=== PATIENT | female | born 1955 | race Caucasian/White ===

== ENCOUNTER → 2021-08-22 11:05 | Outpatient (CLI) | payer OTHER, SELFPAY ==
[2021-08-22 14:22] LABS: COVID19 -Nasal RAPID Negative (Negative)
== END ==
PROVIDERS: Visit Provider Physician Assistant
DX: Z20.822 Contact with and (suspected) exposure to COVID-19 (principal); Z01.812 Encounter for preprocedural laboratory examination
CPT/HCPCS: 87635; C9803

== ENCOUNTER 2021-08-25 10:38 | Day surgery (SDC) | payer OTHER, SELFPAY ==
[2021-08-18 12:33] VITALS: BMI 41.1
[2021-08-25] VITALS (19 sets, daily range): BP systolic 122–171; BP diastolic 65–109; PULSE 71–85; RESP 11–18; TEMP 36.1–36.4; O2SAT 96–100; BMI 41.1
[2021-08-25] MEDS: LACTATED RINGERS 1,000 ML 42 ML IV ×2 (11:27→15:28)
--- NOTE | 2021-08-25 12:55 | PM.PREOP ---
Pre-operative Note COVID-19 COVID-19 status: Negative Result date/Date tested (Pos, Neg/Pending): 08/23/21 Interval Note History & Physical reviewed/Exam performed by Physician: Yes Changes to H&P: No
[2021-08-25] MEDS: CLINDAMYCIN 900 MG/50 ML PIGGYBACK 50 MG IV ×2 (13:35→21:55)
[2021-08-25] MEDS: BUPIVACAINE LIPOSOME 266 MG/20 ML VIAL INJ (14:00)
[2021-08-25] MEDS: BUPIVACAINE 0.25% (PF) VIAL 30 ML INJ (14:04)
[2021-08-25] MEDS: EPINEPHrine 1 MG/ML 0.15 MG SUBCUT (14:05)
--- NOTE | 2021-08-25 14:26 | SUR.OPER ---
Prone on spine table, head in foam head support, padded chest and pelvic supports, gel pad at knees, lower legs supported by pillows; nipples, genitalia and toes free of pressure, arms secured on foam padded arm boards at <90 degrees abduction. Tape over blanket at thigh secured to table. Gel pads placed between heels, between bilateral hip/thighs and table, and to table bar support on right side of table between patient.
--- NOTE | 2021-08-25 15:51 | PM.OP.1 ---
Operative Date/Time/Diagnoses Date of procedure: 08/25/21 Time of procedure: 13:00 Pre-op diagnosis: 1. L5-S1 spondylolisthesis 2. L5-S1 spinal stenosis with radiculopathy Post-op diagnosis: same Procedure & Clinicians Procedure: 1. L5-S1 Postero-lateral and posterior interbody fusion 2. L5-S1 interbody cage placement. 3. L5-S1 decompressive laminectomy with bilateral facetecomies 4. L5-S1 Posterior non-segmental instrumentation 5. [place] of bone marrow from iliac crest 6. Utilization of microsurgical technique and operating microscope Same procedure as scheduled: Yes Indications: Patient has been having chronic back pain and worsening lumbar radiculopathy. Patient failed multiple conservative management with worsening pain weakness and numbness in her lower extremity. Patient has been having difficulty performing activity of daily living. After discussing risks benefits of treatment options, patient elected proceed with surgery. Surgeon: Nedra Ryder Rotary Kiln Operator: Celsa Danielson Click Yes if Unassisted: No Anesthesia Type: General Operative Notes Closure Type: primary Specimen(s): none sent Prosthetic devices, grafts, tissues, transplants, or devices: Globus revolve screws, Rise cage Estimated Blood Loss (mL): 50 Blood products transfused: none Procedure in detail: Patient was seen in the preoperative area. Risks and benefits of the surgery was discussed with the patient. Informed consent was obtained from the patient and placed in the chart. Surgical site was marked. Patient was taken to the operative room. General anesthesia was administered. Prophylactic antibiotic was given to the patient less than 30 min before the incision was made. Patient was placed into a prone position on the Edvin table. Patient's back was then prepped and draped in the sterile fashion. Time-out was performed at this time. Using AP and lateral C-arm imaging the interval between L5-S1 was identified and marked on patient's back. A 2 inch incision 2 in from midline was made on the left side first. The fascia was incised in line with skin incision. Globus MARS retractors was placed inside the incision and docked onto the L5 lamina. Using microsurgical technique and operating microscope, a L5 laminectomy and L5-S1 facetectomy was performed using a Kerrison rongeur. Patient was found have severe neural foraminal stenosis and required a total facetectomy for decompression which rendered L5-S1 grossly unstable and required a fusion procedure at the same time. The disc space at L5-S1 was identified. And a total diskectomy was performed at L5-S1 level. The endplates were decorticated using a rasp and shaver. The total diskectomy and decortication was performed at L5-S1 level in order to to accomplish a L5-S1 fusion. The local bone from the laminectomy and facetectomy was saved for local bone grafting. After the total diskectomy and decortication was completed, Trifecta bone graft material was combined with local bone that was harvested earlier. At this time, a separate skin is incision was made over the iliac crest. A Jamshidi needle was inserted into the iliac crest through a separate skin incision. 5 cc of bone marrow aspiration was obtained through the separate skin incision using a Jamshidi needle from the iliac crest. The bone marrow aspiration was combined with local bone and the Trifecta bone grafting material. The bone grafting material was placed into the L5-S1 interbody space along with a expandable cage. The cage was expanded to its maximum height using the torque limiting screwdriver. At this time a mirror image incision was made on the left side. The fascia was incised in line with the skin incision. Globus MARS retractor was inserted and docked onto the L5-S1 posterolateral gutter. Using the power drill, posterior-lateral decortication was performed at L5-S1 level until bleeding cortical bone was identified. The remaining bone grafting material was placed into the L5-S1 posterior lateral gutter he order to accomplish posterolateral fusion at the L5-S1 level. Using the double C-arm technique, pedicle screws were placed into the L5-S1 pedicles bilaterally. This was done by placing the Jamshidi needle into the pedicles, then placing the guidewires over the Jamshidi needle, and finally placing the cannulated screws over the guidewires bilaterally. After the pedicle screws were placed, 2 titanium rods was locked into the heads of the pedicle screws using locking caps and torque limiting screwdriver. Thready reducers were used to reduce the patient's spondylolisthesis. Appropriate reduction was accomplished and maintained using the hardware placed. After all the hardware was placed, and confirmed with AP and lateral C-arm imaging, the wound was then irrigated with sterile normal saline and packed with Ray-Ana Rosa gauze for 3 min to accomplish hemostasis. After the gauze was removed the deep fascia was closed with #1 Vicryl suture. The subcutaneous layer was closed with 2-0 Vicryl. The skin was closed with skin bernadette. Patient tolerated the procedure well. There were no complications. Complications: none Post-operative Condition: stable Disposition: PACU Plan for aftercare: Admit to inpatient hospital
--- NOTE | 2021-08-25 15:56 | DI.RAD.S_ITS ---
PROCEDURE: XR LUMBAR SPINE 2-3V INDICATIONS: L5-S1 TLIF TECHNIQUE: 2 intraoperative fluoroscopic views of the lumbar spine were acquired. COMPARISON: None. FINDINGS: Intraoperative fluoroscopic images of lower lumbar spine shows posterior fusion at L5-S1 level with intervertebral spacer placement. IMPRESSION: Fluoro guidance was provided intraoperatively for posterior fusion at L5-S1 level. Dictated by: Mariano Rushing M.D. on 08/25/2021 at 16:09 Approved by: Mariano Rushing M.D. on 08/25/2021 at 16:10
[2021-08-25] MEDS: fentaNYL 100 MCG/2 ML INJ IV ×2 (16:09→16:22)
[2021-08-25] MEDS: HYDROMORPHONE 2 MG INJ IV ×2 (16:30→16:47)
[2021-08-25] MEDS: HYDROMORPHONE 0.5 MG INJ IV ×2 (17:47→20:23)
[2021-08-25] MEDS: SODIUM CHLORIDE 0.9% 1,000 ML 100 ML IV (17:50)
[2021-08-25] MEDS: ACETAMINOPHEN 325 MG TABLET 650 MG PO (18:01)
[2021-08-25] MEDS: hydrOXYzine pamoate 25 MG CAPSULE PO (18:02)
[2021-08-25] MEDS: SENNOSIDES 8.6 MG TABLET 17.2 MG PO (20:23)
[2021-08-25] MEDS: DOCUSATE 100 MG CAPSULE PO (20:23)
[2021-08-26] MEDS: hydrOXYzine pamoate 25 MG CAPSULE PO (00:01)
[2021-08-26] MEDS: OXYCODONE IR 5 MG TABLET 10 MG PO ×4 (00:01→13:30)
[2021-08-26 00:05] VITALS: BP 146/82; PULSE 90; RESP 18; TEMP 36.1; O2SAT 99
[2021-08-26] MEDS: HYDROMORPHONE 0.5 MG INJ IV (01:25)
[2021-08-26] MEDS: SODIUM CHLORIDE 0.9% 1,000 ML 100 ML IV (05:19)
[2021-08-26] MEDS: CLINDAMYCIN 900 MG/50 ML PIGGYBACK 50 MG IV (05:20)
[2021-08-26 06:02] VITALS: BP 131/71; PULSE 102; RESP 16; TEMP 36.9; O2SAT 98
--- NOTE | 2021-08-26 07:45 | P.DS_ITS ---
History of Present Illness History of Present Illness Date Patient Seen: 08/26/21 Time Patient Seen: 07:46 Chief complaint: Low back pain status post lumbar fusion Narrative: The patient is complaining of [id number]-id-[id number] low back pain this morning, which is different than prior to surgery. She denies any new numbness or tingling down her legs. She denies nausea or vomiting. No fevers, chills, night sweats. Overall she is feeling well. She has not worked with physical therapy yet, but if she does well, she would like to go home today. Discharge Providers Provider Discharge Date: 08/26/21 Primary care physician: Doctor Jeferson MD Consults: 08/25/21 17:25 Consult to Occupational Therapy Evaluate & Treat Comment: Physician Instructions: Evaluate and treat Consult to Physical Therapy Evaluate & Treat Comment: Physician Instructions: Evaluate and Treat Discharge provider: Celsa Danielson PA-C Summary Hospital Course Discharge Diagnosis: 1. L5-S1 spondylolisthesis 2. L5-S1 spinal stenosis with radiculopathy Hospital Course: Procedure: 1. L5-S1 Postero-lateral and posterior interbody fusion 2. L5-S1 interbody cage placement. 3. L5-S1 decompressive laminectomy with bilateral facetecomies 4. L5-S1 Posterior non-segmental instrumentation 5. [place] of bone marrow from iliac crest 6. Utilization of microsurgical technique and operating microscope Same procedure as scheduled: Yes Indications: Patient has been having chronic back pain and worsening lumbar radiculopathy. Patient failed multiple conservative management with worsening pain weakness and numbness in her lower extremity. Patient has been having difficulty performing activity of daily living. After discussing risks benefits of treatment options, patient elected proceed with surgery. Surgeon: Nedra Ryder Financial Reporting Consultant: Celsa Daneilson Click Yes if Unassisted: No Anesthesia Type: General Operative Notes Closure Type: primary Specimen(s): none sent Prosthetic devices, grafts, tissues, transplants, or devices: Globus revolve screws, Rise cage Estimated Blood Loss (mL): 50 Blood products transfused: none Status at Discharge Cognitive/behavioral status at discharge: oriented Functional status at discharge: uses cane/walker Overall status at discharge: patient is progressing back to baseline Exam Vital Signs (past 8 hours): - 08/26/21 00:05 08/26/21 06:02 Temperature 97.0 F L 98.4 F Pulse Rate 90 102 H Respiratory Rate 18 16 Blood Pressure 146/82 H 131/71 Pulse Oximetry 99 98 Oxygen Delivery Method Nasal Cannula Oxygen Flow Rate 2 Narrative Exam Narrative: Pleasant 66-year-old female, resting comfortably in bed, no acute distress. Incision demonstrates very small area of scant drainage, otherwise clean, dry, intact. No surrounding erythema or induration. Bilateral lower extremity motor functions are grossly intact. Bilateral sensation is grossly intact to light touch. Calves are soft, nontender to palpation. PFSH Medical History Cataract Diverticulitis Elevated blood pressure, situational Former smoker HLD (hyperlipidemia) Insomnia Surgical History History of 2 sections History of bunionectomy of left great toe History of partial hysterectomy Hx of appendectomy Hx of left breast biopsy Social History household members: spouse and children Smoking Status: Former smoker alcohol intake: current Discharge Assessment & Plan Assessment and Plan Assessment: Progressing well status post lumbar fusion Plan of Treatment: Mobilize with PT today. If she is cleared, she may DC home today. Her daughter and are available at home to help. Limit bending, lifting, twisting. Weightbearing as tolerated with front wheel walker. Continue with current pain regimen. Follow-up with Dr. Ryder in 10-14 days for postoperative visit Discharge Plan Discharge Plan Patient Disposition: Home Discharge orders & Medications Discharge Orders: Discharge (Order); Ordered 08/26/21 Ordered By: Celsa Danielson Prescriptions: New acetaminophen 500 mg capsule 500 mg PO Q4H MDD Max 6 tabs per day PRN (Reason: Pain, Mild (1-3)) Qty: 90 RF: 0 hydroxyzine pamoate 25 mg Capsule 25 mg PO Q4HR PRN (Reason: Nausea And Vomiting, muscle spasms) Qty: 20 RF: 0 oxycodone 5 mg Tablet See Rx Instructions .ROUTE .COMPLEX PRN (Reason: Pain, Severe (7-10)) Qty: 42 RF: 0 docusate sodium 100 mg Capsule 100 mg PO BID PRN (Reason: Constipation from narcotic pain meds) Qty: 30 RF: 0 Continued simvastatin 20 mg Tablet 20 mg PO DAILY RF: 0 ibuprofen 200 mg Tablet 400 mg PO DAILY PRN (Reason: Pain) RF: 0 famotidine [Acid Controller] 20 mg Tablet 20 mg PO DAILY PRN (Reason: Reflux) RF: 0 Discontinued acetaminophen 500 mg Tablet 1,000 mg PO Q6H PRN (Reason: Pain) RF: 0 Follow up/Referrals: Nedra Ryder MD [Physician] - (10-14 days for a postoperative visit) Doctor Govea MD [Primary Care Provider] - Diet/Activity/Treatments Diet: Diet as Tolerated and Regular Activity: Limit bending, lifting, twisting -weight bearing as tolerated with front wheel walker -continue with home exercises as demonstrated by Physical therapy Cold/Heat Therapy: -use ice as needed for pain Other treatments: -use Tylenol 500 mg 1 tab every 4 hours for pain -Use 1-2 tablets of Oxy: 5 mg as needed for moderate to severe pain. It used to go lacks for associated constipation -Use Vistaril(hydroxyzine) as needed for agitation, muscle spasms, nausea/vomiting Skin/Wound/Dressing Care Skin care: -okay to shower after 48 hours Report to your healthcare provider any signs of infection, such as:: chills, fever, night sweats, unusual drainage and unusual redness Dressing: -call the office if dressing becomes wet, soiled, saturated Visit Report/Discharge Packet Instructions: DI for Transforaminal Lumbar Interbody Fusion Stand Alone Forms: Surgery Discharge Discharge Data Primary Care Provider: Doctor Jeferson Attending Provider: Nedra Ryder Quality VTE Deep Vein Thrombosis/Pulmonary Embolism Present on Admission: No
[2021-08-26] MEDS: ACETAMINOPHEN 325 MG TABLET 650 MG PO (08:48)
[2021-08-26] MEDS: DOCUSATE 100 MG CAPSULE PO (08:49)
[2021-08-26] MEDS: ATORVASTATIN 20 MG TABLET 10 MG PO (08:49)
--- NOTE | 2021-08-26 09:25 | PT.IIE ---
Current Diagnoses Spondylolisthesis, lumbosacral region (08/25/21) Spinal stenosis, lumbar region without neurogenic claudication (08/25/21) Surgery Performed Operation Date: 08/25/21 12:15 Actual Procedures p L5-S1 TLIF - Nedra Ryder MD Medical History (Last Reviewed 08/26/21 @ 07:47 by Celsa Danielson PA-C) Cataract Diverticulitis Elevated blood pressure, situational Former smoker HLD (hyperlipidemia) Insomnia Physical Therapy Inpatient Evaluation/Re-Eval M1 PT/OT-IP Prior Functional Status Start: 08/26/21 08:38 Freq: NEEDED Status: Active Protocol: Document 08/26/21 10:32 [facility] (Rec: 08/26/21 10:47 [facility] [id number]) Medical Review Prior Functional Status Medical History Reviewed Yes Communication WNL. Pt is an effective verbal communicator. Mobility and Gait Independent without assistive device for up to 1/2 mile. Pt states she relies on a shopping cart during grocery trips. Her sitting tolerance has been limited and she has been unable to drive longer than 15 minutes at a time. Pt wears orthotics in her shoes but does not depend on them. Pt is vague about falls history but admits to falling approximately every three months. Activities of Daily Living and IADL's Independent with ADL's. 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 Social History Household Members spouse,children Living Arrangements House Number of Floors (Floors) Two Floors Number of Stairs To Enter/Railing? 2 CONNIE with a post on the left side and no rail. 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 Her spouse is able to assist as needed at home. M2 PT-IP Current Condition Start: 08/26/21 08:38 Freq: NEEDED Status: Active Protocol: Document 08/26/21 09:25 AW (Rec: 08/26/21 09:42 AW [id number]) Physical Therapy Current Condition Current Condition Evaluation Date 08/26/21 Treatment Diagnosis s/p L5-S1 TLIF; impaired mobility and gait Onset Date 08/25/21 Precautions Lumbar Precautions Log Roll,No Twisting,Limit Bending,Lifting Restriction of 10 lbs,Gait Belt above Incisional Area Other Precautions falls Weight Bearing Status Weight Bearing Status Weight Bear as Tolerated M3 PT-IP Subjective Start: 08/26/21 08:38 Freq: NEEDED Status: Active Protocol: Document 08/26/21 09:25 AW (Rec: 08/26/21 09:42 AW [id number]) Subjective Physical Therapy Visit Type Type Initial Evaluation Visit Start Time 08:45 Visit Stop Time 09:25 Total Visit Minutes 40 Notes Co-tx with PT Krishna who is orienting on acute care. Number of UI UX DEVELOPER Visits 0 Physical Therapy Visit Comments Patient Comments I'd really like to go home today. Patient Goals Return home with family support Therapy Pain Assessment Pain When Pain Assessed During Mobility Pain Present Pain Present Pain Reported Location Lower Back Intensity 2 Scale Used 1/10 at rest; 2/10 during mobility Pain Management Techniques Distraction,Re-positioning, Timing of Activity with Medications M4 PT-IP Mobility and Gait Start: 08/26/21 08:38 Freq: NEEDED Status: Active Protocol: Document 08/26/21 09:25 AW (Rec: 08/26/21 11:32 AW [id number]) PT-Bed Mobility Assessment Rolling Type of Rolling Log Rolling,Roll to Left Level of Assist Contact Guard Assistance,1 Person Assistance Supine to Sit Supine to Sit Contact Guard Assistance,1 Person Assistance Scooting Scooting to Edge of Bed Standby Assistance PT-Transfer Assessment Sit to and From Stand Sit to and from Stand Contact Guard Assistance,1 Person Assistance,Use of Upper Extremities Equipment Transfer Assistive Device Gait Belt,Front Wheeled Walker ,4 Wheeled Walker Orthotic/Prosthetic Devices or Brace: No Transfers Transfer Destination Chair,Toilet Transfer Technique ambulated with fww/4ww Transfer Ability Level of Assist Standby Assistance,Contact Guard Assistance Comments Mobility Comments Pt was lying in bed as PT arrived. BP 129/68 HR 86. PT educated on post op precautions and log roll for bed mobility. She log rolled to her left side and needed CGA to complete SL to sit. She stood from the bed CGA and used FWW to ambulate around the room before transferring to bedside chair CGA. She stood again SBA and agreed to ambulate in the halls. She walked 150 feet with FWW SBA. She completed stair training and returned to the room, transferring to the chair SBA. She stood SBA and walked to the toilet, transferring without use of grab bars CGA. She used hands on her thighs to stabilize ascending and descending. She then used 4WW to ambulate around the room before transferring back to the chair. Pt was left with call light and tray table in reach. Gait Assessment Gait Gait Assistance Required: Standby Assistance,Contact Guard Assist Distance (Feet) 150 Able to Maintain Weight Bearing Status Yes During Gait Assistive Devices Assistive Device Gait Belt,Front Wheeled Walker ,4 Wheeled Walker Orthotic/Prosthetic Devices or Brace: No Gait Deviations General Gait Pattern Antalgic,Decreased Feet Clearance,Wide Based Gait Factors Limiting Gait Function Factors Limiting Gait Function Decreased Activity Tolerance, Decreased Sensation,Decreased Strength,Pain Comments Gait Comments Pt ambulates with externally rotated hips and wide AR. She was safe with both FWW and 4WW but did require education on using brakes with 4WW for safety. Stair Climbing Assessment Evaluation Level of Assist On Stairs Minimal Assistance,1 Person Assistance Devices Stair Climbing Assistive Devices Left Railing Technique/Endurance Stair Climbing Direction Ascend and Descend Stair Climbing Technique Step to Step Number of Steps Climbed 3 Query Text: Stair Climbing Set # Repetitions (reps) 1 Comments Stair Climbing Comments Pt states there is a pole on the left side of her stairs which she can contact as needed. She proceeded to climb stairs leading with RLE, touching left handrail, and with GRANULATOR TENDER from PT on the right side. She descended in similar fashion, leading with RLE again. PT-Balance Assessment Sitting Balance and Reactions Static Sitting Balance Ability Normal Dynamic Sitting Balance Ability Good Standing Balance and Reactions Static Standing Balance Ability Good Dynamic Standing Balance Ability Good Device Used FWW, 4WW M5 PT-IP Objective Assessments Start: 08/26/21 08:38 Freq: NEEDED Status: Active Protocol: Document 08/26/21 09:25 AW (Rec: 08/26/21 09:45 AW [id number]) Orientation Orientation/Cognition Level of Alertness Alert Orientation Name,Day of Week,Place, Situation Language Function Ability No Deficits Noted Safety Awareness Understands Safety Issues Memory Description No Deficits Noted Comments Pt understands precautions but needs occasional reminders to apply them functionally. Gross Range of Motion Lower Extremity ROM Assessment Bilaterally Impaired Impairments hip ROM limited by habitus Strength Lower Extremity Strength Assessment Bilaterally Impaired Hip 4/5 Knee 4+5 Ankle 4/5 Sensation Assessment Sensation Gross Sensation Right LE Impaired,Left LE Impaired Light Touch Impaired Proprioception (Position) Impaired Sensation Description Numbness Muscle Tone Muscle Tone WNL Yes M6 PT-IP Treatment Start: 08/26/21 08:38 Freq: NEEDED Status: Active Protocol: Document 08/26/21 09:25 AW (Rec: 08/26/21 09:43 AW [id number]) Physical Therapy Treatment Education Education Provided Precautions,Weight Bearing Status,Post-Op Packet,Safety Other Treatments Other Treatment Performed Educated pt on PT plan of care , post-op precautions for functional mobility, safe use of FWW and 4WW. M7 PT-IP Assessment and Plan Start: 08/26/21 08:38 Freq: NEEDED Status: Active Protocol: Document 08/26/21 09:25 AW (Rec: 08/26/21 10:36 AW [id number]) PT Summary Assessment and Plan Potential Rehabilitation Potential Good Status of Condition at Evaluation Evolving Summary Impairments Pain,ROM,Strength,Sensation, Bed Mobility,Transfers,Gait Assessment Summary Tammie is a 66 yo woman seen for PT evaluation on POD1 following L5-S1 TLIF. She does not use an assistive device at baseline but admits to falls ~3-4/year. On evaluation , pt was able to recall 3/3 precautions but required cues to maintain them functionally. She required SBA to CGA with all mobility. She has her spouse and daughter to assist her at home. Once medically stable, she will be safe to discharge home with assist. PT recommends raised toilet seat with handles and tub transfer bench to improve safety at home. Goals Bed Mobility Goal Independent Transfer Goal Independent,Four Wheeled Walker Gait Goal Independent,Four Wheel Walker Gait Distance 150 Other Goals - up/down 2 steps with left side support (ascending) via GRANULATOR TENDER Days to Meet Goals 2 Frequency of Treatment Frequency Of Treatment Twice a Day Treatment Plan Physical Therapy Treatment Plan Bed Mobility Training,Transfer Training,Gait Training, Therapeutic Exercise,Post Op Education,Discharge Planning, Hot or Cold Pack Other Recommendations and Next Treatment review precautions; transfers Focus and progress ambulation with 4WW Precautions Lumbar Precautions Log Roll,No Twisting,Limit Bending,Lifting Restriction of 10 lbs,Gait Belt above Incisional Area Other Precautions falls Recommendations To Nursing Amount of Assist Needed Standby Assistance,1 Person Assist Discharge Recommendations PT Discharge Recommendations Home with Assistance Other Discharge Recommendations RTS with handles, tub transfer bench Transportation Needs at Discharge Private Vehicle
--- NOTE | 2021-08-26 10:28 | OT.IP.EVAL ---
Current Diagnoses Spondylolisthesis, lumbosacral region (08/25/21) Spinal stenosis, lumbar region without neurogenic claudication (08/25/21) Surgery Performed Operation Date: 08/25/21 12:15 Actual Procedures p L5-S1 TLIF - Nedar Ryder MD Past Medical History (Last Reviewed 08/26/21 @ 07:47 by Celsa Danielson PA-C) Cataract Diverticulitis Elevated blood pressure, situational Former smoker History of 2 sections History of bunionectomy of left great toe History of partial hysterectomy HLD (hyperlipidemia) Hx of appendectomy Hx of left breast biopsy Insomnia Surgical History (Last Reviewed 08/26/21 @ 07:47 by Celsa Danielson PA-C) History of 2 sections History of bunionectomy of left great toe History of partial hysterectomy Hx of appendectomy Hx of left breast biopsy Occupational Therapy Inpatient Evaluation/Re-Eval M1 PT/OT-IP Prior Functional Status Start: 08/26/21 08:38 Freq: NEEDED Status: Active Protocol: Document 08/26/21 10:32 [facility] (Rec: 08/26/21 10:47 [facility] [id number]) Medical Review Prior Functional Status Medical History Reviewed Yes Communication WNL. Pt is an effective verbal communicator. Mobility and Gait Independent without assistive device for up to 1/2 mile. Pt states she relies on a shopping cart during grocery trips. Her sitting tolerance has been limited and she has been unable to drive longer than 15 minutes at a time. Pt wears orthotics in her shoes but does not depend on them. Pt is vague about falls history but admits to falling approximately every three months. Activities of Daily Living and IADL's Independent with ADL's. 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 Social History Household Members spouse,children Living Arrangements House Number of Floors (Floors) Two Floors Number of Stairs To Enter/Railing? 2 CONNEI with a post on the left side and no rail. 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 Her spouse is able to assist as needed at home. M2 OT-IP Current Condition Start: 08/26/21 10:31 Freq: Status: Active Protocol: Document 08/26/21 10:32 [facility] (Rec: 08/26/21 10:47 [facility] [id number]) Occupational Therapy Current Condition Current Condition Evaluation Date 08/26/21 Treatment Diagnosis s/p L5-S1 TLIF Diagnosis Onset Date 08/25/21 Post Operative Precautions Lumbar Precautions Log Roll,No Twisting,Limit Bending,Lifting Restriction of 10 lbs,Gait Belt above Incisional Area M3 OT- IP Subjective and Pain Start: 08/26/21 10:31 Freq: Status: Active Protocol: Document 08/26/21 10:32 [facility] (Rec: 08/26/21 10:47 [facility] [id number]) OT- Subjective Occupational Therapy Visit Type Type Initial Evaluation Visit Start Time 09:40 Visit Stop Time 10:28 Total Visit Minutes 45 Occupational Therapy Visit Comments Patient Comments Pt agreed to work with OT. Patient/Caregiver Goals TO go home. OT Pain Assessment Pain When Pain Assessed At Rest Pain Present Pain Present Denied Pain M4 OT- IP ADL's Start: 08/26/21 10:31 Freq: Status: Active Protocol: Document 08/26/21 10:32 [facility] (Rec: 08/26/21 10:47 [facility] [id number]) OT [id number] Comments OT Self-Feeding Comments No issues noted. OT ADL-Grooming General Evaluation Grooming Ability Independent OT ADL-Oral Care General Eval Oral Care Ability Independent Comments Oral Care Comments Educated best to spit into a cup to best follow her back precautions. Pt wanting to lean on the counter for support but able to maintain keeping her back straight while doing oral care needs. 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 Pt able to demonstrate good safety. Pt states at home will not be wearing socks. OT ADL-Toileting Comments OT Toileting Comments Able to practice wiping to best follow her back precautions and it was determined best to stand to wipe at this time. Also suggested pt to get a BSC as she has to get up often to use the toilet at night. OT ADL-Bathing Comments OT Bathing Comments Pt wanting to shower at home. Able to practice to see if pt able to step over the tub in order to get in. Pt able to hold to the wall and with OT CGA able to step over. Pointed out that pt should not bath in the tub at this time. In addition best to cover the dressing during showering needs. M5 OT- IP IADL's Start: 08/26/21 10:31 Freq: Status: Active Protocol: Document 08/26/21 10:32 [facility] (Rec: 08/26/21 10:47 [facility] [id number]) OT-Instrumental Activities of Daily Living Home Safety Awareness Awareness of Need for Assistance at Home Good Awareness Home Safety Comments Best at this time to have 24/7 available assist at pt is very groggy from pain medications. Medication Management Medication Management Comments Best at this time to have 24/7 available assist at pt is very groggy from pain medications. Money Management Money Management Comments Best at this time to have 24/7 available assist at pt is very groggy from pain medications. Meal Preparation Meal Preparation Comments Best at this time to have 24/7 available assist at pt is very groggy from pain medications. Fruit Raiser Fruit Raiser Comments Best at this time to have 24/7 available assist at pt is very groggy from pain medications. M6 OT- IP Functional Cognition Start: 08/26/21 10:31 Freq: Status: Active Protocol: Document 08/26/21 10:32 [facility] (Rec: 08/26/21 10:47 [facility] [id number]) Cognitive Factors Limiting Selfcare Function Cognitive Ability Level of Alertness Alert Patient Orientation Name,Place,Situation Attention Span Ability Capable of Focused Attention, Capable of Sustained Attention Ability to Follow Commands Able to Follow One Step Commands Safety Awareness Decreased Recall of Precautions,Decreased Ability to Apply Precautions, Underestimates Need for Assistance Cognitive Comments Cognitive Assessment Comments Pt is groggy from medications and needing cues to follow for safety of back precautions. OT- Vision and Hearing OT- Hearing Assessment OT- Hearing Assessment Hearing Impaired OT- Vision Assessment Visual Acuity Glasses For Reading M7 OT- IP Mobility and Balance Start: 08/26/21 10:31 Freq: Status: Active Protocol: Document 08/26/21 10:32 [facility] (Rec: 08/26/21 10:47 [facility] [id number]) OT- Bed Mobility Assessment Sit to Supine Sit to Supine Assist Minimal Assistance OT-Transfer Assessment Sit to and From Stand Sit to and from Stand Standby Assistance Transfers Transfer Ability Standby Assistance,Contact Guard Assistance Technique Transfer Destination Bed,Chair,Shower Stall,Toilet Transfer Technique Stand Step Pivot Devices Transfer Assistive Devices None,Front Wheeled Walker Comments Mobility Comments SBA with FWW and close SBA without , but suggested best to use her 4WW at home to help remind her of her back precaution. OT- Gait Assessment Comments Gait Ability Comments SBA with FWW OT- Balance Assessment Sitting Balance and Reactions Static Sitting Balance Ability Normal Dynamic Sitting Balance Ability Normal Standing Balance and Reactions Static Standing Balance Ability Good M8 OT- IP Objective Assessments Start: 08/26/21 10:31 Freq: Status: Active Protocol: Document 08/26/21 10:32 [facility] (Rec: 08/26/21 10:47 [facility] [id number]) OT-Muscle Tone Assessment Muscle Tone WNL Yes M9 OT- IP Assessment and Plan Start: 08/26/21 10:31 Freq: Status: Active Protocol: Document 08/26/21 10:32 [facility] (Rec: 08/26/21 10:47 [facility] [id number]) OT Summary Assessment and Plan Potential Rehabilitation Potential Excellent Analytic Complexity at Evaluation Low Summary OT Impairments Balance,Functional Mobility, Dressing,Bathing Progress Towards Goals Progressing Toward Goals Assessment Summary Pt low complexity and main barriers are groggy from medications, pain, steps, needing vc for safety and needing JENNY to help get her legs into the bed at this time . Pt has a supportive family to assist her at home. Pt looking to go home today. Long handle shoe horn issued to pt. Goals Grooming Goal Independent Dressing Goal Independent Toileting Goal Independent Bathing Goal Independent Toilet Transfer Goal Independent Shower Transfer Goal Independent Patient/Caregiver Education Goal Demonstrate Post-Op Precautions,Caregiver Independent Assisting Patient Days to Meet Goals 3 Frequency of Treatment Frequency Of Treatment Once a Day Treatment Plan OT Treatment Plan ADL Training,Functional Mobility,Patient/Family Education,Discharge Planning Other Treatment Recommendations and Next shower if still here Treatment Focus Discharge Recommendations OT Discharge Recommendations Home with 24/ Assist Available Home Equipment Needs BSC, hand held shower spray Transportation Needs at Discharge Private Vehicle
--- NOTE | 2021-08-26 12:14 | CM.DANOTE ---
DCP: Case received, EMR reviewed and met with patient. Introduced self and role. Was able to obtain information regarding patient's baseline activity status prior to hospitalization, as well as her current living situation. DCP assessment completed with information currently available. Patient is a 66 year old female who admitted yesterday morning to the care of the orthopedic team. PCP: Dr. Perez. Payer: confirmed: [employer] Medicare [employer]age. Patient came to the hospital via private vehicle for a surgical procedure. Patient had a L5-S1 postero-lateral & posterior interbody fusion. Patient has history of spinal stenosis. Met with patient in her room. She is alert and oriented, she was sitting up in her chair. She resides near [place] with her spouse. Patient also confirmed that daughter, Cassidy, resides with her and will help out as well. Patient is independent at her baseline. She will be working with P.T. P: Patient is to be discharging home today. Lia Gray RN/Clerical Support Discharge Planning/Care Management CM Discharge Assessment Start: 08/26/21 12:11 Freq: Status: Active Protocol: Document 08/26/21 12:13 (Rec: 08/26/21 12:14 [id number]) Discharge Planning Assessment Assigned Manager Printing Lia Gray RN/Clerical Support Advance Directives? No Prior Living Arrangements House Household Members spouse,children Type of transporation used prior to Drives own vehicle admit Independent with ADL's Yes Is patient alert and oriented? Yes Caregiver for Another No Barriers to Discharge No Discharge Plan Home Transportation Arrangement Family Referrals Initiated None needed Whiteboard Updated in Patient Room with Yes name and ext. # of Manager Printing Review Status In Process Next Review Type Continued Stay Review Pre-Anesthesia Assessment Start: 08/18/21 12:33 Freq: Status: Active Protocol: Document 08/18/21 12:33 [facility] (Rec: 08/18/21 13:33 [facility] [id number]) Pre-Anesthesia Assessment Patient Information Reviewed Via Phone Assessment Assessment Completed With Patient H&P Completed Within 30 Days Yes Diagnostic Results BMP/CMP,CBC,EKG Comment Outside labs/EKG scanned, COVID screen @ 08/22/21 Primary Care Provider Haris Perez Seen Specialist in Last 12 Months Yes Specialist Seen Orthopedist Primary Language Spanish Obstetrics Tech Required No Height 5 ft 4 in Weight 240 lb Body Mass Index (BMI) 41.1 Hearing Ability Normal Visual Assist Glasses,Magnifying Glass Dentition Type Teeth, Natural Present Barriers to Learning None Hx Anesthesia Reactions No Hx Family Anesthesia Reaction No Hx Malignant Hyperthermia No Hx Blood Transfusions No Anesthesia Review Requested No alcohol intake current alcohol intake frequency holidays/special occasions only Smoking Status Former smoker Tobacco type cigarettes Smoking packs per day 1 how long ago did patient quit smoking Quit July 09 Substance Use Type does not use Pain Present Pain Reported Musculoskeletal Symptoms Abnormal Gait,Back Pain, Difficulty Walking,Muscle Weakness,Radiating Pain into Limb,Tingling History of Falling (Recent or History of No ) Patient is completely paralyzed or No completely immobile Mental Status Oriented to own ability Is patient on oxygen? No Does patient have CHAUDHRY/SOB No Hx Sleep Apnea No Currently Taking a Beta Rona No Hx Chest Pain No Hx SOB No Hx Syncope or Dizziness No Anti-Coagulant Therapy No Has a Corrections Sergeant No Cardiac Testing No Hx Pacemaker/ICD No Pacemaker Rep Required? No Cardiac Clearance Received Not Applicable Diet Type At Home Regular dysphagia No Bladder Pattern Urgency Urinary Catheter Present No Hx Urinary Self Catheterization No Diabetes No HgbA1C 5.6 Date 07/25/21 Patient No Lactating No Hx Drug Resistant Organism Yes: MRSA -nares 2015 Presence of External or Internal Medical Yes: Left great toe Devices Have you had any close contact with No someone diagnosed with COVID-19? Received a COVID vaccine? Pt refuses to answer, It's my business Marital Status Lives With spouse,children Prior Living Arrangements House Number of Floors (Floors) Two Floors Support System Child/Children,Spouse Does the Patient Have Assistance After Yes Surgery Patient Discharge Plan Description Return Home Comment Pt advised one night length of stay per surgeon Feels Safe in Current Environment Yes Been Physically Hurt or Threatened By a No Person in Current Environment Do you have thoughts of harming yourself None or others? Are you currently considering suicide? No Do you have a plan to hurt yourself or No Plan others? Do You Have Any Spiritual Beliefs That No May Affect Your HC Choices? Do You Have Any Cultural Practices That No May Affect Your HC Choices? Comment Daniel Who Can We Speak to About Patient's Care Family, friends Identifying Code for Release of Patient Declines to issue Information Health Care Proxy/Next of Kin Chip (daughter) Health Care Proxy Emergency Contact Name Swapnil () Emergency Contact Advance Directives? No Power of Balance Staff Inspector No PAC Instructions Durable medical equipment, Medications to take/avoid, Nasal antibiotic,No ETOH/ petroleum product on skin DOS, NPO,Pre-surgical wash,Sturdy shoes/comfortable clothes,Do not bring valuables and remove jewelry
--- NOTE | 2021-08-26 12:41 | PT.IPTN ---
Current Diagnoses Spondylolisthesis, lumbosacral region (08/25/21) Spinal stenosis, lumbar region without neurogenic claudication (08/25/21) Surgery Performed Operation Date: 08/25/21 12:15 Actual Procedures p L5-S1 TLIF - Nedra Ryder MD Physical Therapy Treatment Note M2 PT-IP Current Condition Start: 08/26/21 08:38 Freq: NEEDED Status: Active Protocol: Document 08/26/21 09:25 AW (Rec: 08/26/21 09:42 AW [id number]) Physical Therapy Current Condition Current Condition Evaluation Date 08/26/21 Treatment Diagnosis s/p L5-S1 TLIF; impaired mobility and gait Onset Date 08/25/21 Precautions Lumbar Precautions Log Roll,No Twisting,Limit Bending,Lifting Restriction of 10 lbs,Gait Belt above Incisional Area Other Precautions falls Weight Bearing Status Weight Bearing Status Weight Bear as Tolerated M3 PT-IP Subjective Start: 08/26/21 08:38 Freq: NEEDED Status: Active Protocol: Document 08/26/21 12:41 AW (Rec: 08/26/21 12:56 AW [id number]) Subjective Physical Therapy Visit Type Type Treatment Note Visit Start Time 12:25 Visit Stop Time 12:41 Total Visit Minutes 16 Number of EXPLOSIVE OPERATOR Visits 0 Physical Therapy Visit Comments Patient Comments Pt is willing to participate with PT Therapy Pain Assessment Pain When Pain Assessed At Rest Pain Present Pain Present Denied Pain Location Lower Back Intensity 2 Scale Used Numeric (0 - 10) Pain Management Techniques Apply Cold,Distraction,Re- positioning M4 PT-IP Mobility and Gait Start: 08/26/21 08:38 Freq: NEEDED Status: Active Protocol: Document 08/26/21 12:41 AW (Rec: 08/26/21 12:56 AW [id number]) PT-Bed Mobility Assessment Rolling Type of Rolling Log Rolling,Roll to Left Level of Assist Contact Guard Assistance,1 Person Assistance Sit to Supine Sit to Supine Contact Guard Assistance,1 Person Assistance PT-Transfer Assessment Sit to and From Stand Sit to and from Stand Standby Assistance,1 Person Assistance,Use of Upper Extremities Equipment Transfer Assistive Device Gait Belt,4 Wheeled Walker Orthotic/Prosthetic Devices or Brace: No Transfers Transfer Destination Bed Transfer Technique ambulated wth 4ww Transfer Ability Level of Assist Standby Assistance Comments Mobility Comments Pt was sitting up in chair finishing with lunch as PT arrived. She stood SBA after properly checking brakes on 4WW. She ambulated 500 feet with 4WW SBA before returning to the room and completing reverse log roll with cues and CGA. Pt was left in bed with alarm on for safety, call light and phone within reach. Gait Assessment Gait Gait Assistance Required: Standby Assistance Distance (Feet) 500 Able to Maintain Weight Bearing Status Yes During Gait Assistive Devices Assistive Device Gait Belt,4 Wheeled Walker Orthotic/Prosthetic Devices or Brace: No Gait Deviations General Gait Pattern Antalgic,Decreased Feet Clearance,Wide Based Gait Factors Limiting Gait Function Factors Limiting Gait Function Decreased Activity Tolerance, Decreased Sensation,Decreased Strength,Pain Comments Gait Comments Pt required occasional cues to avoid twisting and abandoning 4WW during gait. PT-Balance Assessment Sitting Balance and Reactions Static Sitting Balance Ability Normal Dynamic Sitting Balance Ability Normal Standing Balance and Reactions Static Standing Balance Ability Good Dynamic Standing Balance Ability Good Device Used 4WW M5 PT-IP Objective Assessments Start: 08/26/21 08:38 Freq: NEEDED Status: Active Protocol: Document 08/26/21 09:25 AW (Rec: 08/26/21 09:45 AW [id number]) Orientation Orientation/Cognition Level of Alertness Alert Orientation Name,Day of Week,Place, Situation Language Function Ability No Deficits Noted Safety Awareness Understands Safety Issues Memory Description No Deficits Noted Comments Pt understands precautions but needs occasional reminders to apply them functionally. Gross Range of Motion Lower Extremity ROM Assessment Bilaterally Impaired Impairments hip ROM limited by habitus Strength Lower Extremity Strength Assessment Bilaterally Impaired Hip 4/5 Knee 4+5 Ankle 4/5 Sensation Assessment Sensation Gross Sensation Right LE Impaired,Left LE Impaired Light Touch Impaired Proprioception (Position) Impaired Sensation Description Numbness Muscle Tone Muscle Tone WNL Yes M6 PT-IP Treatment Start: 08/26/21 08:38 Freq: NEEDED Status: Active Protocol: Document 08/26/21 12:41 AW (Rec: 08/26/21 12:56 AW [id number]) Physical Therapy Treatment Education Education Provided Precautions,Weight Bearing Status,Safety M7 PT-IP Assessment and Plan Start: 08/26/21 08:38 Freq: NEEDED Status: Active Protocol: Document 08/26/21 12:41 AW (Rec: 08/26/21 12:56 AW [id number]) PT Summary Assessment and Plan Summary Impairments Pain,ROM,Strength,Sensation, Bed Mobility,Transfers,Gait Progress Towards Goals Progressing Toward Goals,Safe For Discharge Assessment Summary Pt progressed her gait distance with occasional cues needed to avoid twisting. She has her spouse to assist at home and is safe for discharge once medically stable. Goals Bed Mobility Goal Independent Transfer Goal Independent,Four Wheeled Walker Gait Goal Independent,Four Wheel Walker Gait Distance 150 Other Goals - up/down 2 steps with left side support (ascending) via PROTOTYPE FABRICATOR Days to Meet Goals 2 Frequency of Treatment Frequency Of Treatment Twice a Day Treatment Plan Physical Therapy Treatment Plan Bed Mobility Training,Transfer Training,Gait Training, Therapeutic Exercise,Post Op Education,Discharge Planning, Hot or Cold Pack Precautions Lumbar Precautions Log Roll,No Twisting,Limit Bending,Lifting Restriction of 10 lbs,Gait Belt above Incisional Area Other Precautions falls Recommendations To Nursing Amount of Assist Needed Standby Assistance Discharge Recommendations PT Discharge Recommendations Home with Assistance Other Discharge Recommendations RTS with handles, tub transfer bench Transportation Needs at Discharge Private Vehicle
== END 2021-08-26 14:03 | disposition home or self-care (01) ==
LOC: OR 10:41 → AC 10:42
PROVIDERS: Referring Provider Orthopaedic Surgery Orthopaedic Surgery of the Spine; Visit Provider Orthopaedic Surgery Orthopaedic Surgery of the Spine
PROC: (CPT 22633; principal; 2021-08-25 12:15)
DX: M48.061 Spinal stenosis, lumbar region without neurogenic claudication (principal)
CPT/HCPCS: 22633; 22853; 22840; 20939; 63047; 72100; 76000; 82962; 94760; 97116; 97161; 97165; 97530; 97535; C1776; C9290; J0171; J1100; J1170; J2250; J2405; J2704; J3010